=== PATIENT | female | born 1940 | race Caucasian/White ===

== ENCOUNTER 2018-05-30 16:37 | Inpatient (IN) ==
--- NOTE | 2018-05-30 17:29 | Emergency Department Note ---
Disposition Clinical Impression: Unstable angina pectoris, Elevated troponin Disposition: Admitted As Inpatient Condition: Fair Referrals: Deidre Benito CNP [Primary Care Provider] - Forms: ED Satisfaction Letter Time of Disposition: 19:37 Chest Pain HPI - General Chief Complaint: ED Chest Pain Stated Complaint: Chest/abd pain Time Seen by Provider: 05/30/18 17:29 Source: patient Mode of arrival: ambulatory Limitations: no limitations Vital Signs Reviewed: Yes Nursing Notes Reviewed: Yes - History of Present Illness HPI Narrative: Patient presents to the ED with the chief complaint of chest pain. Patient states that she had an episode 5-6 days ago. She states that it was a heavy pressure in her left chest. States that she had a heart attack 15 years ago and had 2 stents placed but this pain feels exactly the same. She has been on aspirin since then. States that she took 2 extra aspirin and went to sleep and that seemed to help her pain. States she is been fine since then and she woke up this morning and has a return of left-sided chest pressure and heaviness. States it is a very dull ache and does seem to involve her left periscapular area as well as her left arm. States it feels sore like she got a shot. She denies any fever or chills. The pain is not pleuritic. She does complain of some nausea and feeling sweaty at times. Denies any pain or swelling in her legs. No history of DVT, PE or malignancy Severity scale (1-10): 3 - Related Data Home Medications Medication Instructions Recorded Confirmed Levothyroxine [Synthroid] 50 mcg PO DAILY 08/08/15 07/02/17 Aspirin 325 mg PO DAILY 07/02/17 07/02/17 Previous Rx's Medication Instructions Recorded OxyCODONE/APAP 5/325 [Percocet 1 each PO Q6HR PRN 7 Days #28 07/02/17 5/325 MG] tablet Allergies Allergy/AdvReac Type Severity Reaction Status Date / Time penicillin V Allergy Rash Verified 07/02/17 12:58 Review of Systems: As reviewed in the HPI. All other systems reviewed are negative or normal. 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 - Social History Smoking Status: Never smoker Alcohol use: Reports: none Drug use: Reports: none Physical Exam CONSTITUTIONAL: [well appearing, alert and in no acute distress] EYES: [EOMI, clear conjunctiva, PERRLA] HENT: [Normocephalic, atraumatic, moist mucus membranes, normal oropharynx] NECK: [normal inspection, full ROM, trachea midline, no obvious swelling] PULMONARY: [normal lung sounds bilaterally, normal chest rise and fall, no respi ratory distress or stridor, no wheezes, no rales, no rhonchi CARDIOVASCULAR: [regular rate, regular rhythm, normal heart sounds, no murmurs, distal extremities are warm and well perfused] GASTROINSTESTINAL: [soft, non-tender, non-rigid, non-distended, no guarding, no rebound, normal bowel sounds] GENITOURINARY/RECTAL: [deferred] NEUROLOGIC: [Alert, oriented x3, normal speech, moves all extremities] EXTREMITIES: [Normal inspection, full ROM, no tenderness, no pedal edema, normal capillary refill] MUSCULOSKELETAL: [no gross deformities, atraumatic] SKIN: [No cyanosis, no diaphoresis, normal color, warm, no rash] PSYCHIATRIC: [normal mood and affect] - General Limitations: no limitations General appearance: alert Course - Reevaluation(s) Reevaluation #1: Troponin is elevated. We will start on a heparin drip and admit. Vital Signs Temperature 98.6 F 05/30/18 17:11 Pulse Rate 61 05/30/18 17:11 Respiratory Rate 18 05/30/18 17:11 Blood Pressure 216/96 05/30/18 17:11 O2 Sat by Pulse Oximetry 99 05/30/18 17:11 Temperature 98.6 F 05/30/18 17:11 Pulse Rate 61 05/30/18 17:11 Respiratory Rate 18 05/30/18 17:11 Blood Pressure 216/96 05/30/18 17:11 O2 Sat by Pulse Oximetry 99 05/30/18 17:45 Oxygen Delivery Oxygen Delivery Room Air Chest Pain - MDM Narrative Medical decision making narrative: 1834 hrs.: Patient's troponin 0.07, however her creatinine is not back yet. We will order aspirin for her. 1910 hrs.: Patient's labs are back she is refusing aspirin med she says she feels fine and wants to go home's were trying to talk her into staying with her elevated troponin and her history of chest pain. - Lab Data Result diagrams: 05/30/18 17:45 05/30/18 17:45 Lab Results 05/30/18 05/30/18 05/30/18 Range/Units 17:45 17:45 17:57 WBC 8.3 (4.3-11.1) K/mcL RBC 4.33 (3.82-4.97) M/mcL Hgb 13.7 (11.5-15.4) g/dL Hct 41.2 (35.3-44.9) % MCV 95.2 (83.0-100.0) fL MCH 31.6 (28.0-33.3) pg MCHC 33.3 (31.6-35.5) g/dL RDW 12.7 (11.5-14.5) % Plt Count 360 (140-400) K/mcL MPV 10.1 (9.4-12.4) fL Immature Gran % 0.4 (0-4) % Seg Neutrophils % 75.4 % Lymphocytes % 15.4 % Monocytes % 5.9 % Eosinophils % 2.3 % Basophils % 0.6 % Neutrophils # 6.3 (1.6-8.9) K/mcL Lymphocytes # 1.3 (0.6-4.6) K/mcL Monocytes # 0.5 (0.0-1.3) K/mcL Eosinophils # 0.2 (0.0-0.6) K/mcL Basophils # 0.1 (0.0-0.2) K/mcL Sodium 133 L (136-145) mEq/L Potassium 3.9 (3.5-5.1) mEq/L Chloride 98 (98-107) mEq/L Carbon Dioxide 23 (23-29) mEq/L BUN 16 (8-23) mg/dL Creatinine 0.63 (0.60-1.20) mg/dL Est GFR ( Amer) > 60 (> 60) Est GFR (Non-Af Amer) > 60 (> 60) BUN/Creatinine Ratio 25 (6-26) Glucose 119 H (70-105) mg/dL Calculated Osmolality 278 L (280-300) Calcium 10.0 (8.6-10.3) mg/dL Troponin I 0.07 H* (< 0.04) ng/mL Urine Color Yellow (Yellow) Urine Clarity Clear (Clear) Urine pH 7.0 (5.0-8.0) pH Units Ur Specific [place] 1.006 L (1.010-1.025) Urine Protein Negative (Neg-Trace) mg/dL Urine Glucose (UA) Normal (Normal) mg/dL Urine Ketones Negative (Negative) mg/dL Urine Blood Negative (Negative) Urine Nitrite Negative (Negative) Urine Bilirubin Negative (Negative) Urine Urobilinogen Normal (Normal) mg/dL Ur Leukocyte Esterase Small H (Negative) Urine Microscopic RBC 0-3 (0-3) per hpf Urine Microscopic WBC 0-3 (0-3) per hpf Ur Squamous Epith Cells None Seen (None-Few) per lpf Urine Bacteria None Seen (None-Few) per hpf Hyaline Casts None Seen (None-Few) per lpf Ur Culture Indicated? YES A (NO) Attestation Statement - Attestation Attestation: This documentation is done with the assistance of Dragon dictation. Despite efforts made to ensure accuracy, there may be inaccuracies in transportation superintendent or spelling and typographical errors. I examined this patient and my medical decision-making was reviewed with the Resident Physician. I agree with the documented findings, disposition and treatment plan as described except to the extent set forth below. Patient seen and evaluated on arrival by Dr. Dwyer and myself, I agree with his evaluation and management plan, I supervised the care the patient's stay. Patient's been having what she describes shoulder achiness she says no real chest pain a little bit into her arm. This is been going on intermittently over the last week. Said 15 years ago she had an AK in symptoms were almost like this. She is not nauseous she is not short of breath. We will do a cardiac workup on her and reassess. Chest is hypothyroidism but says she does not really have any other cardiac risk factors. She appears comfortable here.
[2018-05-30] MEDS ORDERED: 0.9 % Sodium Chloride 500 ML IVC ONE (17:36)
[2018-05-30] MEDS ORDERED: Nitroglycerin 0.4 MG TAB.SUBL SL PRN (17:36)
[2018-05-30 18:12] LABS: Bilirubin,Urine Negative (Negative); Blood,Urine Negative (Negative); Clarity,Urine Clear (Clear); Color,Urine Yellow (Yellow); Glucose,Urine (UA) Normal (Normal); Ketones,Urine Negative (Negative); Leukocyte Esterase,Urine Small (Negative); Nitrite,Urine Negative (Negative); Protein,Urine Negative (Neg-Trace); Specific Gravity,Urine 1.006 (1.010-1.025); Urobilinogen,Urine Normal (Normal)
[2018-05-30 18:15] LABS: Bacteria,Urine None Seen per hpf (None-Few); Hyaline Casts,Urine None Seen per lpf (None-Few); RBC,Urine 0-3 per hpf (0-3); Squamous Epithelial Cell,Urine None Seen per lpf (None-Few); WBC,Urine 0-3 per hpf (0-3)
[2018-05-30 18:17] LABS: Basophils # 0.1 K/mcL (0.0-0.2); Basophils % 0.6 %; Eosinophils # 0.2 K/mcL (0.0-0.6); Eosinophils % 2.3 %; Hematocrit 41.2 % (35.3-44.9); Hemoglobin 13.7 g/dL (11.5-15.4); Immature Granulocytes % 0.4 % (0-4); Lymphocytes # 1.3 K/mcL (0.6-4.6); Lymphocytes % 15.4 %; Mean Corpuscular HGB Conc 33.3 g/dL (31.6-35.5); Mean Corpuscular Hemoglobin 31.6 pg (28.0-33.3); Mean Corpuscular Volume 95.2 fL (83.0-100.0); Mean Platelet Volume 10.1 fL (9.4-12.4); Monocytes # 0.5 K/mcL (0.0-1.3); Monocytes % 5.9 %; Neutrophils # 6.3 K/mcL (1.6-8.9); Platelet Count 360 K/mcL (140-400); Red Blood Count 4.33 M/mcL (3.82-4.97); Red Cell Distribution Width 12.7 % (11.5-14.5); Segmented Neutrophils % 75.4 %
[2018-05-30 18:28] LABS: Troponin I 0.07 ng/mL (< 0.04)
[2018-05-30] MEDS ORDERED: Aspirin 81 MG TAB.CHEW PO ONE (18:30)
[2018-05-30 18:36] LABS: BUN/Creatinine Ratio 25 (6-26); Blood Urea Nitrogen 16 mg/dL (8-23); Carbon Dioxide 23 mEq/L (23-29); Chloride 98 mEq/L (98-107); Glucose 119 mg/dL (70-105); Osmolality,Calculated 278 (280-300); Potassium 3.9 mEq/L (3.5-5.1); Sodium 133 mEq/L (136-145); eGFR For Non-African Americans > 60 (> 60)
[2018-05-30] MEDS ORDERED: *HR* Heparin 5,000 UNIT/ML VIAL IVP ONE (19:12)
[2018-05-30] MEDS: Heparin 25,000 UNIT/500 ML D5W 25,000 UNIT/500 ML BAG IVC SCH (20:51)
[2018-05-30] MEDS ORDERED: Ondansetron ODT 4 MG TAB.RAPDIS SL PRN (20:53)
--- NOTE | 2018-05-30 21:03 | Internal Med History&Physical ---
<Kwadwo Wells W - Last Filed: 05/30/18 23:44> Date of Encounter: 05/30/18 Time of Encounter: 20:58 Internal Medicine - H&P: HPI Chief complaint: Chest pain Admitted From: Home History of present illness: Ms. Morgan is a 77 year old female past medical history of coronary artery disease stent placement 15 years ago, and hypothyroidism presents to the ED with chest discomfort. Patient states that Wednesday of last week she noted some chest discomfort. She describes this as an ache not necessarily pain. There was also some neck pressure This came on after she drank a large latte. She took aspirin and went to lay down and felt that it mostly went away and is able to continue her shortness. Patient felt fine for the next several days. States she woke up having this similar other left-sided chest ache/heaviness. This mostly located on her left side with some radiation to her back and shoulder. She states she did have some neck pressure at this time well. She took aspirin which helped minimally. Patient continued to most of her day and was convinced by family member to come to the ED. patient really does not have chest pain. She has no pain with exertion. Does not believe this pain is brought on by activity. Does admit to having a slightly dry mouth and urinating slightly more frequently but believes this is due to increased water intake. No dysuria, no hematuria. patient denies fever, chills, headache, vision change, weakness, swelling, numbness, tingling, loss of sensation, abdominal pain, nausea/vom iting/diarrhea, rash, SOB Past Med Surg Social Fam HX - Past Medical History Medical history: myocardial infarction, thyroid disease Additional medical history: HEART STENTS. CAD. HIGH LIPIDS Psychiatric history: no psych history - Past Surgical History Surgical History: angioplasty/stent, Additional surgical history: EAR, hearing aide, contact to left eye - Social History Smoking Status: Never smoker Smokeless Tobacco Status: No Alcohol use: none Drug use: none - Family History Father Adopted: No Family Member Ethnicity: Non- Living Status: Hx Family Cardiac Disorders: Yes (cad) Hx Family Respiratory Disorders: No Hx Family Cancer: Yes Hx Family GI Disorders: No Hx Family Endocrine Disorder: No Hx Family Neuromuscular Disorders: No Hx Family Neurologic Disorders: No Hx Family HEENT Disorders: No Hx Family Autoimmune Disorders: No Internal Medicine - H&P: Meds Levothyroxine [Synthroid] 50 mcg PO DAILY 08/08/15 [History] Aspirin 325 mg PO DAILY 07/02/17 [History] OxyCODONE/APAP 5/325 [Percocet 5/325 MG] 1 each PO Q6HR PRN 7 Days #28 tablet 07/02/17 [Rx] Allergy/AdvReac Type Severity Reaction Status Date / Time penicillin V Allergy Rash Verified 07/02/17 12:58 All Systems PM: A 10-system review of systems was performed and is negative for pertinent findings except as documented above in the HPI. - Constitutional Constitutional: as per HPI - EENT Eyes: as per HPI Ears: as per HPI Nose, mouth and throat: as per HPI - Cardiovascular Cardiovascular ROS IM: as per HPI - Respiratory Respiratory: as per HPI - Gastrointestinal Gastrointestinal: as per HPI - Genitourinary Genitourinary: as per HPI - Musculoskeletal Musculoskeletal ROS IM: as per HPI - Integumentary Integumentary IM: as per HPI - Neurological Neurological ROS: as per HPI - Psychiatric Psychiatric: as per HPI - Endocrine Additional comments: Cold hands - Constitutional Vitals: Temp Pulse Resp BP Pulse Ox 98.6 F 61 16 155/82 98 05/30/18 17:11 05/30/18 19:57 05/30/18 19:57 05/30/18 19:57 05/30/18 19:57 General appearance: Present: A&O X 3, pleasant, no acute distress, answers qu estions appropriately Exam: Patient is a very pleasant and conversational. She is in no apparent distress. - Head Head exam: Present: atraumatic, normocephalic - Eye Eye exam: Present: PERRL, conjuntiva pink, sclera anicteric Pupils: Present: PERRL - Neck Neck exam general surgery: Present: supple, trachea midline. Absent: ly mphadenopathy - Respiratory Respiratory exam: Present: CTAB. Absent: accessory muscle use, rales, rhonchi, wheezes - Cardiovascular Cardiovascular exam: Present: RRR, +S1, +S2. Absent: diastolic murmur, gallop, rubs, systolic murmur - GI/Abdominal GI/Abdominal exam: Present: normal bowel sounds, soft, no peritoneal signs. Absent: distended, tenderness - Extremities Exam Extremities exam: Present: warm, radial pulses palpable and symmetrical. Absent: calf tenderness, cyanotic, pedal edema - Neurological Exam Neurological exam: Present: oriented X3, no focal deficits. Absent: pronater drift, facial droop, speech deficit - Psychiatric Psychiatric exam: Present: normal affect, normal mood - Skin Skin exam: Present: dry, intact Internal Med - H&P Results - Labs CBC & Chem 7: 05/30/18 17:45 05/30/18 17:45 Labs: Short CBC 05/30/18 Range/Units 17:45 WBC 8.3 (4.3-11.1) K/mcL Hgb 13.7 (11.5-15.4) g/dL Hct 41.2 (35.3-44.9) % Plt Count 360 (140-400) K/mcL Neutrophils # 6.3 (1.6-8.9) K/mcL BMP 05/30/18 17:45 Sodium 133 L Potassium 3.9 Chloride 98 Carbon Dioxide 23 BUN 16 Creatinine 0.63 Glucose 119 H Calcium 10.0 Cardiac Enzymes 05/30/18 Range/Units 17:45 Troponin I 0.07 H* (< 0.04) ng/mL Urine 05/30/18 Range/Units 17:57 Urine Color Yellow (Yellow) Urine Clarity Clear (Clear) Urine pH 7.0 (5.0-8.0) pH Units Ur Specific [place] 1.006 L (1.010-1.025) Urine Protein Negative (Neg-Trace) mg/dL Urine Glucose (UA) Normal (Normal) mg/dL - Impressions ITS Impressions Chest X-Ray 05/30/18 17:37 IMPRESSION: No acute cardiopulmonary disease. D/ / 05/30/2018 18:13:26 [facility] Provider: Marlon Nguyen MD - Assessment and Plan (1) Unstable angina pectoris Current Visit: Yes Status: Acute Assessment and plan: 1 week history of intermittent chest pain History of myocardial infarction requiring stent placement 15 years ago On aspirin 324 mg daily since stent placement Troponin elevated 0.[address] segment elevation Aspirin and she will given in ED Initial blood pressure is 216/96, no history of hypertension Chest x-ray from no acute process Patient currently comfortable Plan: Heparin drip started in ED SL nitro prn ECHO NPO midnight Consult cardiology (order in), appreciate recs Cardiac monitoring Trend troponin (2) Elevated troponin Current Visit: Yes Status: Acute Assessment and plan: Plan as #1 above (3) CAD (coronary artery disease) Current Visit: No Status: Chronic Assessment and plan: History of coronary artery disease cardio 2 stents 15 years ago Plan as #1 above Qualifiers: Coronary Disease-Associated Artery/Lesion type: [place] artery [place] vs. transplanted heart: [place] heart Associated angina: without angina Qualified Code(s): I25.10 - Atherosclerotic heart disease of [place] coronary artery without angina pectoris (4) Hypertension Current Visit: Yes Status: Acute Assessment and plan: Patient had initial blood pressure 216/96 Received sublingual nitroglycerin Most recent blood pressure 155/82 No history of previous hypertension Continue to monitor Qualifiers: Hypertension type: unspecified Qualified Code(s): I10 - Essential (primary) hypertension (5) Hypothyroidism Current Visit: No Status: Chronic Assessment and plan: On levothyroxine at home Continue oral dose if no intervention is needed Qualifiers: Hypothyroidism type: unspecified Qualified Code(s): E03.9 - Hypothyroidism, unspecified (6) DVT prophylaxis Current Visit: No Status: Acute Assessment and plan: On heparin drip - Time Spent With Patient Total time spent is greater than 50% in coordination of care (as documented) at patient's floor/unit and/or counseling patient: <Heath Capps Deni - Last Filed: 05/31/18 05:59> Date of Encounter: 05/31/18 Internal Medicine - H&P: HPI History of present illness: Ms. Morgan is a 77 year old female All Systems PM: A 10-system review of systems was performed and is negative for pertinent findings except as documented above in the HPI. - Constitutional Vitals: Temp Pulse Resp BP Pulse Ox 98.3 F 53 17 109/62 97 05/31/18 05:07 05/31/18 05:07 05/31/18 05:07 05/31/18 05:07 05/31/18 05:07 Internal Med - H&P Results - Labs CBC & Chem 7: 05/30/18 17:45 05/31/18 04:43 Labs: Short CBC 02/25/19 Range/Units 17:45 WBC 8.3 (4.3-11.1) K/mcL Hgb 13.7 (11.5-15.4) g/dL Hct 41.2 (35.3-44.9) % Plt Count 360 (140-400) K/mcL Neutrophils # 6.3 (1.6-8.9) K/mcL BMP 05/30/18 05/31/18 17:45 04:43 Sodium 133 L 138 Potassium 3.9 3.6 Chloride 98 105 Carbon Dioxide 23 25 BUN 16 13 Creatinine 0.63 0.63 Glucose 119 H 105 Calcium 10.0 9.6 Cardiac Enzymes 05/30/18 05/31/18 Range/Units 17:45 00:42 Troponin I 0.07 H* 0.37 H* (< 0.04) ng/mL Urine 05/30/18 Range/Units 17:57 Urine Color Yellow (Yellow) Urine Clarity Clear (Clear) Urine pH 7.0 (5.0-8.0) pH Units Ur Specific [place] 1.006 L (1.010-1.025) Urine Protein Negative (Neg-Trace) mg/dL Urine Glucose (UA) Normal (Normal) mg/dL - Impressions ITS Impressions Chest X-Ray 05/30/18 17:37 IMPRESSION: No acute cardiopulmonary disease. D/ / 05/30/2018 18:13:26 [facility] Provider: Marlon Nguyen MD - Time Spent With Patient Total time spent is greater than 50% in coordination of care (as documented) at patient's floor/unit and/or counseling patient: - Attending Attestation I saw and evaluated the patient. I reviewed the residents note, performed my own physical examination and agree with findings and plan as documented in the residents note. Patient seen and e xamined on 05/30/18. Patient presented with she describes as a soreness in her left upper arm and shoulder, similar to her previous heart attack about 15 years ago. 2 does not necessarily describe it as pain. Initial troponin was 0.07, EKG was nonspecific and patient was started on a heparin drip in the emergency room. This morning her troponin increased to 0.37. Patient remains chest pain/symptom-free. We will continue heparin drip, echocardiogram in the morning and cardiology consult has been placed.
[2018-05-31 05:32] LABS: BUN/Creatinine Ratio 21 (6-26); Blood Urea Nitrogen 13 mg/dL (8-23); Calcium 9.6 mg/dL (8.6-10.3); Carbon Dioxide 25 mEq/L (23-29); Chloride 105 mEq/L (98-107); Glucose 105 mg/dL (70-105); Osmolality,Calculated 286 (280-300); Potassium 3.6 mEq/L (3.5-5.1); Sodium 138 mEq/L (136-145); eGFR For Non-African Americans > 60 (> 60)
[2018-05-31] MEDS ORDERED: Perflutren Lipid Microsphere 1.3 ML in 0.9 % Sodium Chloride 8.7 ML IVP ONE (09:59)
--- NOTE | 2018-05-31 11:12 | Cardiology Consult Note ---
<ThongLizzieRodri C - Last Filed: 05/31/18 11:17> Date of Encounter: 05/31/18 Time of Encounter: 11:09 Assessment and Plan (1) CAD (coronary artery disease) Current Visit: Yes Status: Chronic Patient presented with 1 day of atypical chest/left upper back pain, stated it felt similar to previous ACS pain History includes ACS remote ACS episode with cath and PCI, most recent echo/stress in 2016 Echo 2016: pEF 60%, mild diastolic dsfx, mild pulmonic regurgitation Stress 2016: negative for ischemia or infarct, gated EF 70% EKG on admission non specific, troponin 0.07 -> 0.37, 3rd pending Started on heparin drip, echo ordered, cardiology consulted Repeat EKG this am with T WAVE inversions in II, III, aVF No current chest pain this morning, echo done, report pending Recommend stress or cath today/tomorrow based on echo/troponin/clinical course Recommend continuing heparin, ASA, nitro PRN, NPO diet Further recommendations per Dr. Sun Qualifiers: Coronary Disease-Associated Artery/Lesion type: [place] artery [place] vs. transplanted heart: [place] heart Associated angina: with stable angina Qualified Code(s): I25.118 - Atherosclerotic heart disease of [place] coronary artery with other forms of angina pectoris Discussion w patient/family: The assessment and plan as outlined above was discussed with the patient and/or family members who expressed understanding and agreement. All questions were answered. Thank you for involving us in the care of your patient. Please call with any questions. History of Present Illness Consult date: 05/30/18 Requesting physician: Kwadwo Wells Consult reason: chest pain, positive troponins Chief complaint: chest pain History of present illness: Ms. Morgan is a 77 year old female with a past medical history of CAD s/p remote PCI, hypothyroidism. She presented to the ED for atypical chest pain, located more in the left upper back, that she describes as similar to the pain from her previous ACS event. It started yesterday and radiated down the left arm. In ED CXR was negative, EKG was documented as non-specific, troponins were elevated at 0.07, trended to 0.37. She was admitted and heparin drip was started, cardiology consulted. Patient cardiology history most recently includes echo and stress in 2016. Echo had preserved EF 60%, mild diastolic dysfunction, mild pulmonic regurgitation. Stress was negative for ischemia or infarct with gated EF 70%. She is no longer complaining of chest pain this morning just mild upper left back ache. She is relatively healthy otherwise with good functional status. She denies shortness of breath, palpitations, nausea or diaphoresis. Past Med Surg Social Fam HX - Past Medical History Medical history: myocardial infarction, thyroid disease Additional medical history: HEART STENTS. CAD. HIGH LIPIDS Psychiatric history: no psych history - Past Surgical History Surgical History: angioplasty/stent, Additional surgical history: EAR, hearing aide, contact to left eye - Social History Smoking Status: Never smoker Smokeless Tobacco Status: No Alcohol use: none Drug use: none - Family History Father Adopted: No Family Member Ethnicity: Non- Living Status: Hx Family Cardiac Disorders: Yes (cad) Hx Family Respiratory Disorders: No Hx Family Cancer: Yes Hx Family GI Disorders: No Hx Family Endocrine Disorder: No Hx Family Neuromuscular Disorders: No Hx Family Neurologic Disorders: No Hx Family HEENT Disorders: No Hx Family Autoimmune Disorders: No Medications and Allergies Levothyroxine [Synthroid] 50 mcg PO DAILY 08/08/15 [History] Aspirin 325 mg PO DAILY 07/02/17 [History] Allergy/AdvReac Type Severity Reaction Status Date / Time penicillin V Allergy Rash Verified 07/02/17 12:58 All Systems Review: The remainder of the systems were reviewed and are negative - Constitutional Constitutional: no chills, no fatigue, no fever(s), no frequent falls - Cardiovascular Cardiovascular: chest pain with exertion, radiating jaw, neck or arm pain, no chest pain at rest, no dyspnea at rest, no dyspnea on exertion, no irregular heart rhythm, no orthopnea - Respiratory Respiratory: no cough, no dyspnea - Gastrointestinal Gastrointestinal: no abdominal pain, no nausea - Musculoskeletal Musculoskeletal: myalgias, no abnormal gait - Integumentary Integumentary: no erythema, no rash - Neurological Neurological: no abnormal speech, no focal weakness, no syncope - Psychiatric Psychiatric: no anxiety, no depression - Hematological/Lymphatic Hematologic/Lymphatic: no easy bleeding, no easy bruising Physical Examination General: Conversant, No Apparent Distress HEENT: Atraumatic, Mucus Membranes Moist Neck: No JVD, Normal carotid pulses Cardiac: Reg Rate and Rhythm, Normal S1 and S2, No Murmur Lungs: Normal Breath Sounds, No Wheeze, Rales, Rhonchi Neuro: Alert and responsive, No focal deficits noted Abdomen: Soft, Non-Tender Skin: No rashes noted on visualized skin Musculoskeletal: No Chest Wall Tenderness Extremities: No Edema, Normal Pulses Results 05/30/18 17:45 05/31/18 04:43 Lab Results 05/30/18 05/30/18 05/31/18 17:45 17:45 00:42 WBC 8.3 Hgb 13.7 Hct 41.2 Plt Count 360 Sodium 133 L Potassium 3.9 Chloride 98 Carbon Dioxide 23 BUN 16 Creatinine 0.63 Glucose 119 H Calcium 10.0 Troponin I 0.07 H* 0.37 H* 05/31/18 04:43 WBC Hgb Hct Plt Count Sodium 138 Potassium 3.6 Chloride 105 Carbon Dioxide 25 BUN 13 Creatinine 0.63 Glucose 105 Calcium 9.6 Troponin I - Imaging and Cardiology Chest Xray: report reviewed Echo: pending - EKG Interpretation EKG results cardiology: personally reviewed, sinus rhythm (new t wave inversions in II, III, AVF) Consult Discharge Plan - Plan Referrals: Deidre Benito, TRANSFORMATION COACH [Primary Care Provider] - <Carlos Sun A - Last Filed: 05/31/18 16:25> Date of Encounter: 05/31/18 - Attending Attestation I have personally performed a face to face evaluation on this patient. I have reviewed and agree with the documented findings and care plan as documented by the resident. History and Exam by me shows: 77-year-old female with history of coronary artery disease status post stent 15 years ago, presenting with atypical chest pain which is similar to the one she had when she had NV. Mild troponin elevation which is now trending down, echo shows preserved ejection fraction. AAOX3 in NAD at the bedside Hemodynamically stable Cardiopulmonary exam revealed S1, S2, no murmur; clear lungs Rhythm reviewed - sinus rhythm, nonspecific ST T changes Echo preserved EF, no significant valvular heart disease Impression/plan: NSTEMI. Aspirin, beta priyanka, IV heparin, statin. Currently chest pain-free. Troponin trending down. For stress test tomorrow Carlos Alonso MD FAC Assessment and Plan Discussion w patient/family: The assessment and plan as outlined above was discussed with the patient and/or family members who expressed understanding and agreement. All questions were answered. Thank you for involving us in the care of your patient. Please call with any questions. History of Present Illness History of present illness: Ms. Morgan is a 77 year old female All Systems Review: The remainder of the systems were reviewed and are negative Results 05/30/18 17:45 05/31/18 04:43 Lab Results 05/30/18 05/30/18 05/31/18 17:45 17:45 00:42 WBC 8.3 Hgb 13.7 Hct 41.2 Plt Count 360 Sodium 133 L Potassium 3.9 Chloride 98 Carbon Dioxide 23 BUN 16 Creatinine 0.63 Glucose 119 H Calcium 10.0 Troponin I 0.07 H* 0.37 H* 05/31/18 05/31/18 04:43 11:40 WBC Hgb Hct Plt Count Sodium 138 Potassium 3.6 Chloride 105 Carbon Dioxide 25 BUN 13 Creatinine 0.63 Glucose 105 Calcium 9.6 Troponin I 0.18 H*
--- NOTE | 2018-05-31 13:39 | Internal Med Progress Note ---
Hospitalist Progress Note - Encounter Date of Encounter: 05/31/18 Time of Encounter: 13:37 - Subjective Interval History: Pt denies chest of sOB. She states she her left shoulder was aching and 15 years ago when she had an MO, she presented with similar symptoms. She denies fever, chills, N/V or diarrhea. - Exam Vitals: Temp Pulse Resp BP Pulse Ox 98.1 F 71 18 96/59 98 05/31/18 12:08 05/31/18 12:08 05/31/18 12:08 05/31/18 12:08 05/31/18 12:08 Exam: General appearance: Present: A&O X 3, pleasant, no acute distress, answers questions appropriately Patient is a very pleasant and conversational. She is in no apparent distress. Head exam: Present: atraumatic, normocephalic Eye exam: Present: PERRLA, conjunctiva pink, sclera anicteric Pupils: Present: PERRL Neck exam general surgery: Present: supple, trachea midline. Absent: l ymphadenopathy Respiratory exam: Present: CTAB. Absent: accessory muscle use, rales, rhonchi, wheezes Cardiovascular exam: Present: RRR, +S1, +S2. Absent: diastolic murmur, gallop, rubs, systolic murmur GI/Abdominal exam: Present: normal bowel sounds, soft, no peritoneal signs. Absent: distended, tenderness Extremities exam: Present: warm, radial pulses palpable and symmetrical. Absent: calf tenderness, cyanotic, pedal edema Neurological exam: Present: oriented X3, no focal deficits. Absent: pronater drift, facial droop, speech deficit Psychiatric exam: Present: normal affect, normal mood Skin exam: Present: dry, intact - Assessment and Plan (1) NSTEMI (non-ST elevated myocardial infarction) Current Visit: Yes Status: Acute Assessment and Plan: Troponin 0.07 --0.37 --0.18. Cardiology consulted to see. Possible stress vs cath in am. Continue on heparin gtt for now. Echo ordered. (2) Elevated troponin Current Visit: Yes Status: Acute Assessment and Plan: As above. Continue ASA daily Continue Nitro SL PRN. DC'ed nitro gtt since pt has not required it. (3) Hypertension Current Visit: Yes Status: Acute Assessment and Plan: hypotensive. Hold P meds for now. (4) Hypothyroidism Current Visit: No Status: Chronic Assessment and Plan: synthroid 50 mcg one PO daily DVT Prophylaxis: Heparin - Summary of Assessment and Plan Summary of Assessment and Plan: History of present illness: Dr. Beard Ms. Morgan is a 77 year old female past medical history of coronary artery disease stent placement 15 years ago, and hypothyroidism presents to the ED with chest discomfort. Patient states that Wednesday of last week she noted some chest discomfort. She describes this as an ache not necessarily pain. There was also some neck pressure This came on after she drank a large latte. She took aspirin and went to lay down and felt that it mostly went away and is able to continue her shortness. Patient felt fine for the next several days. States s he woke up having this similar other left-sided chest ache/heaviness. This mostly located on her left side with some radiation to her back and shoulder. She states she did have some neck pressure at this time well. She took aspirin which helped minimally. Patient continued to most of her day and was convinced by family member to come to the ED. patient really does not have chest pain. She has no pain with exertion. Does not believe this pain is brought on by activity. Does admit to having a slightly dry mouth and urinating slightly more frequently but believes this is due to increased water intake. No dysuria, no hematuria. patient denies fever, chills, headache, vision change, weakness, swelling, numbness, tingling, loss of sensation, abdominal pain, nausea/vomiting/diarrhea, rash, SOB - Time Spent with Patient Total time spent is greater than 50% in coordination of care (as documented) at patient's floor/unit and/or counseling patient: less than 15 minutes Plan of Care Discussed with: patient Internal Medicine: Result - Labs CBC & Chem 7: 05/30/18 17:45 05/31/18 04:43 Labs: Short CBC 05/30/18 Range/Units 17:45 WBC 8.3 (4.3-11.1) K/mcL Hgb 13.7 (11.5-15.4) g/dL Hct 41.2 (35.3-44.9) % Plt Count 360 (140-400) K/mcL Neutrophils # 6.3 (1.6-8.9) K/mcL BMP 05/30/18 05/31/18 17:45 04:43 Sodium 133 L 138 Potassium 3.9 3.6 Chloride 98 105 Carbon Dioxide 23 25 BUN 16 13 Creatinine 0.63 0.63 Glucose 119 H 105 Calcium 10.0 9.6 Cardiac Enzymes 05/30/18 05/31/18 05/31/18 Range/Units 17:45 00:42 11:40 Troponin I 0.07 H* 0.37 H* 0.18 H* (< 0.04) ng/mL Urine 05/30/18 Range/Units 17:57 Urine Color Yellow (Yellow) Urine Clarity Clear (Clear) Urine pH 7.0 (5.0-8.0) pH Units Ur Specific [place] 1.006 L (1.010-1.025) Urine Protein Negative (Neg-Trace) mg/dL Urine Glucose (UA) Normal (Normal) mg/dL - Impressions Impressions Chest X-Ray 05/30/18 17:37 IMPRESSION: No acute cardiopulmonary disease. D/ / 05/30/2018 18:13:26 Marlon Nguyen MD / brooks Interpreting Provider: Marlon Nguyen MD Consult Discharge Plan - Plan Referrals: Deidre Benito CNP [Primary Care Provider] - (3) Hypertension Qualifiers: Hypertension type: unspecified Qualified Code(s): I10 - Essential (primary) hypertension (4) Hypothyroidism Qualifiers: Hypothyroidism type: unspecified Qualified Code(s): E03.9 - Hypothyroidism, unspecified
--- NOTE | 2018-05-31 18:27 | Electrocardiograph Report ---
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
--- NOTE | 2018-05-31 18:38 | Electrocardiograph Report ---
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
[2018-06-01] MEDS: Aspirin 325 MG TABLET PO SCH (07:54)
[2018-06-01] MEDS ORDERED: Regadenoson 0.4 MG/5 ML SYRINGE IVP ONE (09:43)
--- NOTE | 2018-06-01 09:49 | Cardiology Progress Note ---
Date of Encounter: 06/01/18 Time of Encounter: 08:45 Assessment and Plan (1) NSTEMI (non-ST elevated myocardial infarction) Current Visit: Yes Status: Acute Patient presented with left back and shoulder pain. H/o remote SD and PCI 15 years ago. Echo 2016: pEF 60%, mild diastolic dysfuntion, mild pulmonic regurgitation. Stress 2016: negative for ischemia or infarct, gated EF 70% EKG on admission non specific t wave changes. Troponin 0.07, 0.37, 0.18. TTE reviewed, EF preserved and no WMA. Denies recurrent pain since admission. Discussed with Dr. Sun and he recommends stress test for further evaluation. Pt on heparin gtt. Continue for 48 hours. Continue asa. Pt adamantly declines taking statin . Indication, use , and adverse effects discussed. Patient seemed disinterested in information. Start low dose beta-priyanka. (2) CAD (coronary artery disease) Current Visit: Yes Status: Chronic H/o SD and PCI 15 years ago. No intervention since that time. Stress test 2016 was negative. Continue asa and bb. Declines statin therapy. Qualifiers: Coronary Disease-Associated Artery/Lesion type: [place] artery [place] vs. transplanted heart: [place] heart Associated angina: with stable angina Qualified Code(s): I25.118 - Atherosclerotic heart disease of [place] coronary artery with other forms of angina pectoris Discussion w patient/family: The assessment and plan as outlined above was discussed with the patient and/or family members who expressed understanding and agreement. All questions were answered. Thank you for involving us in the care of your patient. Please call with any questions. Subjective Principal diagnosis: NSTEMI Interval history: Ms. Morgan denies chest pain since admission. Ambulating in room. Objective Vital Signs, Last 4 Hours Temp Pulse Resp BP Pulse Ox 06/01/18 06:57 97.6 F 53 16 108/66 96 General: Conversant, No Apparent Distress HEENT: Atraumatic, Normocephaly, Mucus Membranes Moist Neck: No JVD, Normal carotid pulses Cardiac: Reg Rate and Rhythm, Normal S1 and S2, No Murmur Lungs: Normal Breath Sounds, No Wheeze, Rales, Rhonchi Neuro: Alert and responsive, No focal deficits noted Abdomen: Soft, Non-Tender Skin: No rashes noted on visualized skin Musculoskeletal: No Chest Wall Tenderness Extremities: No Clubbing, No Cyanosis, No Edema, Normal Pulses Results 05/30/18 17:45 05/31/18 04:43 Lab Results 05/31/18 11:40 Troponin I 0.18 H* - Imaging and Cardiology Echo: report reviewed - EKG Interpretation EKG results cardiology: personally reviewed Consult Discharge Plan - Plan Referrals: Deidre Benito, CONTINUOUS PICKLING LINE PICKLER [Primary Care Provider] -
--- NOTE | 2018-06-01 10:16 | Internal Med Progress Note ---
Hospitalist Progress Note - Encounter Date of Encounter: 06/01/18 Time of Encounter: 11:00 - Subjective Interval History: Patient presented with chest pain found to have non-STEMI currently on heparin drip with cardiology following Patient with abnormal stress tests afternoon - Exam Vitals: Temp Pulse Resp BP Pulse Ox 97.6 F 53 16 108/66 96 06/01/18 06:57 06/01/18 06:57 06/01/18 06:57 06/01/18 06:57 06/01/18 06:57 Exam: Gen.: Nonacute distress, alert and oriented 3 ENT: Mucosal membranes moist Respiratory: Lungs are clear to auscultation bilaterally without any wheezing rhonchi or rales Cardiovascular: Normal S1 and S2 regular rate rhythm no murmurs rubs or gallops Abdomen: Soft, nontender and nondistended with positive bowel sounds Extremities: No lower extremity edema Skin: Normal color - Assessment and Plan (1) NSTEMI (non-ST elevated myocardial infarction) Current Visit: Yes Status: Acute Assessment and Plan: Patient presented with chest pain found to have non-STEMI currently on heparin drip with cardiology following Troponin 0.07 --0.37 --0.18. Recommendations for patient to remain on heparin drip for an additional 48 hours Patient with abnormal stress tests this afternoon Cardiology following in appreciate any additional recommendations. (2) Elevated troponin Current Visit: Yes Status: Acute Assessment and Plan: As above. Continue ASA daily Continue Nitro SL PRN. Continue heparin drip as above (3) Hypothyroidism Current Visit: No Status: Chronic Assessment and Plan: Continue synthroid 50 mcg one PO daily (4) Hypertension Current Visit: Yes Status: Acute Assessment and Plan: Patient has been hypotensive therefore blood pressure medicines have been held DVT Prophylaxis: On heparin drip as above - Time Spent with Patient Total time spent is greater than 50% in coordination of care (as documented) at patient's floor/unit and/or counseling patient: Internal Medicine: Result - Labs CBC & Chem 7: 05/30/18 17:45 05/31/18 04:43 Labs: Cardiac Enzymes 05/31/18 Range/Units 11:40 Troponin I 0.18 H* (< 0.04) ng/mL - Impressions Impressions Echocardiogram 05/31/18 10:00 Impressions: LVEF 55-60%. Normal LV chamber size, wall thickness and overall function. Mild segmental left ventricular systolic dysfunction. Mild left ventricular diastolic dysfunction. Atypical septal motion of unclear etiology. Normal right ventricular structure and function. No evidence of pulmonary hypertension. No significant valvular dysfunction. Left Ventricular Wall Motion: Rest Echo Findings The basal inferior wall was hypokinetic. All other wall segments showed normal motion. Findings: Study Quality * Technically adequate exam. ECG Findings * Sinus bradycardia. Left Ventricle * LVEF 55-60%. * Normal LV chamber size, wall thickness and overall function. * Mild segmental left ventricular systolic dysfunction. * Mild left ventricular diastolic dysfunction. * Atypical septal motion of unclear etiology. Right Ventricle * Normal right ventricular structure and function. Left Atrium * Normal left atrial size. Right Atrium * Normal right atrial size. Aortic Valve * Trileaflet aortic valve. * Mildly sclerotic aortic valve leaflets. * No aortic regurgitation. * No aortic stenosis. Mitral Valve * Normal mitral valve structure and function. * No mitral regurgitation. * No mitral stenosis. Tricuspid Valve * Normal tricuspid valve structure and function. * Trace tricuspid regurgitation. * No evidence of pulmonary hypertension. Pulmonic Valve * Pulmonic valve is not well visualized. * Trace pulmonic regurgitation. Aorta * Normally sized aortic root. Pericardium * The pericardium appears normal. IVC * Normal IVC dimensions and inspiratory collapse. Pulmonary Artery * Normal visualized portions of the main pulmonary artery. Consult Discharge Plan - Plan Referrals: Deidre Benito, ALIGNMENT TECHNICIAN [Primary Care Provider] - (It is a walk in clinic...No appointment needed) (3) Hypothyroidism Qualifiers: Hypothyroidism type: unspecified Qualified Code(s): E03.9 - Hypothyroidism, unspecified (4) Hypertension Qualifiers: Hypertension type: unspecified Qualified Code(s): I10 - Essential (primary) hypertension
[2018-06-01] MEDS: Heparin 25,000 UNIT/500 ML D5W 25,000 UNIT/500 ML BAG IVC SCH ×2 (16:37→22:14)
--- NOTE | 2018-06-02 08:07 | Internal Med Progress Note ---
Hospitalist Progress Note - Encounter Date of Encounter: 06/02/18 - Subjective Interval History: Patient with history of coronary children disease, status post stent placement 15 years ago, and hypothyroid presented with chest pain found to have non-STEMI, now with abnormal stress tests.. Plans for left heart catheterization today per cardiology. - Exam Vitals: Temp Pulse Resp BP Pulse Ox 98.1 F 51 16 120/76 97 06/02/18 07:25 06/02/18 07:25 06/02/18 07:25 06/02/18 07:25 06/02/18 07:25 - Assessment and Plan (1) NSTEMI (non-ST elevated myocardial infarction) Current Visit: Yes Status: Acute Assessment and Plan: Patient with history of CAD, status post stent placement 15 years ago, who presented with chest pain found to have non-STEMI, now with abnormal stress tests. Will continue heparin drip Plans for left heart catheterization today per cardiology. (2) Hypothyroidism Current Visit: No Status: Chronic Assessment and Plan: Continue synthroid 50 mcg one PO daily (3) Hypertension Current Visit: Yes Status: Acute Assessment and Plan: Continue with metoprolol tartrate 12.5 mg twice daily DVT Prophylaxis: On heparin drip as above - Time Spent with Patient Total time spent is greater than 50% in coordination of care (as documented) at patient's floor/unit and/or counseling patient: Internal Medicine: Result - Labs CBC & Chem 7: 05/30/18 17:45 05/31/18 04:43 Consult Discharge Plan - Plan Referrals: Deidre Benito, HUMIDIFIER OPERATOR [Primary Care Provider] - (It is a walk in clinic...No appointment needed) (2) Hypothyroidism Qualifiers: Hypothyroidism type: unspecified Qualified Code(s): E03.9 - Hypothyroidism, unspecified (3) Hypertension Qualifiers: Hypertension type: unspecified Qualified Code(s): I10 - Essential (primary) hypertension
[2018-06-02] MEDS: Aspirin 325 MG TABLET PO SCH (08:26)
[2018-06-02 08:36] LABS: Basophils # 0.1 K/mcL (0.0-0.2); Basophils % 1.2 %; Eosinophils # 0.3 K/mcL (0.0-0.6); Eosinophils % 4.6 %; Hematocrit 41.7 % (35.3-44.9); Immature Granulocytes % 0.5 % (0-4); Immature Platelets 2.5 % (1.1-6.1); Lymphocytes # 1.4 K/mcL (0.6-4.6); Lymphocytes % 23.7 %; Mean Corpuscular HGB Conc 33.6 g/dL (31.6-35.5); Mean Corpuscular Volume 95.2 fL (83.0-100.0); Mean Platelet Volume 10.2 fL (9.4-12.4); Monocytes # 0.4 K/mcL (0.0-1.3); Monocytes % 7.2 %; Neutrophils # 3.7 K/mcL (1.6-8.9); Platelet Count 288 K/mcL (140-400); Red Blood Count 4.38 M/mcL (3.82-4.97); Segmented Neutrophils % 62.8 %
[2018-06-02] MEDS ORDERED: Heparin 25,000 UNIT/250 ML D5W 25,000 UNIT/250 ML IV.SOLN IVC SCH (10:30)
[2018-06-02] MEDS ORDERED: Nitroglycerin 1,000 MCG/10 ML VIAL IV ONE (11:47)
[2018-06-02] MEDS ORDERED: 0.9 % Sodium Chloride 1,000 ML ONE ×2 (11:47→12:09)
[2018-06-02] MEDS ORDERED: ISOVUE-370 200 ML INFUS..BTL ONE (11:47)
[2018-06-02] MEDS ORDERED: *HR* Heparin 10,000 UNIT/10 ML VIAL ONE (11:47)
[2018-06-02] MEDS ORDERED: Heparin 1,000 UNITS/500 mL 500 ML ONE (11:47)
--- NOTE | 2018-06-02 11:59 | Pre-Sedation Evaluation ---
Pre-sedation evaluation - Pre-sedation checklist Date of procedure: 06/02/18 Procedure: heart cath Recent Vitals: Last Vital Signs Temp 98.1 F 06/02/18 07:25 Pulse 51 06/02/18 07:25 Resp 16 06/02/18 07:25 BP 120/76 06/02/18 07:25 Pulse Ox 97 06/02/18 07:25 H&P (including ROS) documented in medical record: Yes Previous reaction to sedatives/anesthetics: No Dietary Status: NPO after Midnight Airway Assessment: Patient can open mouth completely, TMJ function normal Dentition: No loose teeth or bridges Possible difficult airway: No ASA Classification *see protocol: CLASS II-Mild systemic disease Plan of Care: Pt appropriate candidate for procedure/moderate/conscious sedation Cardiac Registry (Cardio Only) - Functional Capacity Functional Capacity: >=4 METS without symptoms - Clincal Frailty Scale Clinical Frailty Scale: Very Fit
[2018-06-02] MEDS ORDERED: Verapamil 5 MG/2 ML VIAL ONE (12:09)
[2018-06-02] MEDS ORDERED: *HR* Midazolam HCl 2 MG/2 ML VIAL ONE (12:09)
[2018-06-02 12:39] LABS: BUN/Creatinine Ratio 25 (6-26); Blood Urea Nitrogen 16 mg/dL (8-23); Carbon Dioxide 16 mEq/L (23-29); Chloride 110 mEq/L (98-107); Glucose 102 mg/dL (70-105); Osmolality,Calculated 281 (280-300); Potassium 3.9 mEq/L (3.5-5.1); Sodium 135 mEq/L (136-145); eGFR For Non-African Americans > 60 (> 60)
--- NOTE | 2018-06-02 12:45 | Event Note ---
Date of Encounter: 06/02/18 Time of Encounter: 12:43 - Cardiology Event Note cath completed. LV normal RCA chronic occlusion at proximal portion at site of previous stent. LCA diffuse mild disease + right to right and left to right collaterals. Recommendations 1) asa 2) bblockers 3) statin therapy and follow up labs.
--- NOTE | 2018-06-02 12:59 | Event Note ---
Date of Encounter: 06/02/18 Time of Encounter: 12:57 - Cardiology Event Note S/p LHC for NSTEMI. Found to have SCREED OPERATOR of the RCA with collaterals. Medical management recommended. Continue asa. Patient agrees with statin therapy now. Low dose bb started yesterday snd patient noted to have HR in the upper 40-lower 50. Willl Hold bb for bradycardia. Out-pt f/u will be coordinated. Call with questions. Cardiology will sign off.
--- NOTE | 2018-06-02 13:02 | Invasive Diagnostic Lab Proc ---
Name: Jennifer Morgan Date of Study: 06/02/2018 Date: 1940 Ht: 59.8in Medical Record#: [id number] Age: 77 Wt: 106.26lb Gender: Female BSA: 1.43 Order #: [id number] BMI: 20.86 Physicians Procedure Physician: Reymundo Morillo MD Referring MD: Referring MD: Staff Name Position Time In Keisha, Esa DORANTES Monitor 12:03 PM Akua Baumann RN Nurses Assistant 12:03 PM Long Medina RT (R) Scrub 12:03 PM Indications Indication Abnormal Test - Stress Procedures Performed Procedure L HRT ARTERY/VENTRICLE ANGIO Pre-Procedure Checklist H&P is on chart. Patient NPO for procedure Plan of Care Patient will tolerate the procedure without complications. Adequate level of comfort will be maintained. Hemodynamics will remain stable Patient will recover from procedure without complications. Respiratory function will be maintained. Cardiac rhythm will remain stable. Patient temperature will be maintained. Patient and/or family have verbalized understanding of the procedure. Patient Education Intravenous Access Time IV Size Location DC'd Fluid/Drip Rate Units RN 20g 1 04/08" Patent On Arrival Rt Antecubital 0.9NaCl Akua Baumann RN Allergies No Known Allergies penicillin V Vital Signs Time BP (mmHg) HR (bpm) O2 Sat. RR (bpm) LOC 12:13 PM / % 5 = Fully awake and oriented or at pre-proc level 12:13 PM / % 4 = Oriented but drowsy 12:13 PM 171 / 81 66 97 % 22 12:17 PM 129 / 67 60 98 % 23 12:22 PM 113 / 59 55 96 % 22 12:28 PM 115 / 70 59 99 % 21 Procedural Medications Time Medication Dose Units Method Given By 12:13 PM Oxygen 2 L/min nasal cannula Akua Baumann RN 12:13 PM Versed 2 mg Intravenous Akua Baumann RN 12:16 PM Lidocaine 2% 2 ml Subcutaneous Reymundo Morillo MD 12:17 PM Heparin 2000 units Nitroglycerin 200 mcg Verapamil 2.5 mg Intraarterial Reymundo Morlilo MD ASA Classification: CLASS II- Mild systemic disease (i.e. well-controlled diabetes, hypertension, asthma, cigarette smoking) Jon Score Preprocedure Postprocedure Activity 2- Moves 4 extremities sustained head lift Activity 2- Moves 4 extremities sustained head lift Circulation 2- SBP +/= 20 points of pre-anesthetic level Circulation 2- SBP +/= 20 points of pre-anesthetic level Consciousness 2- Awake and alert oriented x 3 Consciousness 2- Awake and alert oriented x 3 O2 Saturation 2- Able to maintain O2 satruation of 92% on room air O2 Saturation 2- Able to maintain O2 satruation of 92% on room air Respiratory 2- Able to deep breathe and cough well Respiratory 2- Able to deep breathe and cough well Total Score 10 Total Score 10 Contrast Agent: Isovue Diagnostic Contrast: 50 ml Total Contrast: 50 ml Fluoro Dose: 12 mGy Procedure Log Time Note Enter By 12:00 PM 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 Informed consent was obtained. kprater 12:04 PM Procedure start 12:04 kprater 12:11 PM Vitals capture started with the following parameters, Patient=Adult, Interval=5 min, Initial Ydtiqsts=879 mmHg, Deflation Rate=3 mmHg, Cuff placed on Right Arm 12:13 PM Hair removed from procedure site in procedure lab using clippers. Right wrist/right groin prepped with Chloraprep by Esa Valdes RN, then patient was draped. Skin intact. kprater 12:13 PM Patient charges- Angio tray pack, Navilyst 3mm J, Pulse Oximetry and ACIST tubing and transducer kprater 12:13 PM Time: 12:13 Patient comfortable and pain free: Yes kprater 12:13 PM Time: 12:13LOC: 5 = Fully awake and oriented or at pre-proc level kprater 12:13 PM bilateral hearing aids present kprater 12:13 PM Time: 12:13 Oxygen on at 2 L/min per nasal cannula by Akua Baumann RN kprater 12:13 PM Time: 12:13 Versed 2 mg Intravenous Given by Akua Baumann RN kprater 12:13 PM HR=66 bpm, WFQN=615/81 mmhg, SpO2=97.0 %, Resp=22 B/min, Comment=nsr 12:15 PM Pressure channel 2 zeroed. 12:16 PM Time out was performed according to hospital policy. Conscious sedation and anesthesia was achieved (see medication log with in this report above) kprater 12:16 PM Time: 12:16 2 ml Lidocaine 2% to right radial Subcutaneous Given by Reymundo Morillo MD kprater 12:17 PM Access obtained by percutaneous puncture. 6Fr 11cm Terumo Glidesheath sheath placed in right Radial artery. [id number] kprater 12:17 PM Time: 12:17 Patient given 2,000 units Heparin, 200 mcg Nitroglycerin, and 2.5 mg Verapamil Intraarterial by Reymundo Morillo MD. This is given to reduce risk of vessel spasm and thrombosis. kprater 12:17 PM HR=60 bpm, MCVO=844/67 mmhg, SpO2=98.0 %, Resp=23 B/min, Comment=nsr 12:18 PM 5Fr FL 3.5 catheter inserted over the wire [id number] jcallihan 12:19 PM LCA angiography performed in multiple views. [email or web address] 12:20 PM Recorded Pressure: Ao, HR=51, Condition=Condition 1 (Aorta) Ao 114/59/81 12:21 PM Catheter removed [email or web address] 12:22 PM 5Fr FR 4 catheter inserted over the wire [facility] jcallihan 12:22 PM RCA angiography performed in multiple views. [email or web address] 12:22 PM HR=55 bpm, IQXA=443/59 mmhg, SpO2=96.0 %, Resp=22 B/min, Comment=sb 12:22 PM Recorded Pressure: Ao, HR=55, Condition=Condition 1 (Aorta) Ao 127/65/92 12:23 PM Recorded Pressure: LV, HR=57, Condition=Condition 1 (Left Ventricle) LV 124/11/16 12:24 PM Catheter removed [email or web address] 12:24 PM 5Fr Pigtail catheter inserted over the wire [facility] jcallihan 12:24 PM Catheter crossed the aortic valve and was selectively placed in the left ventricle. Pressures recorded on pullback for left heart catheterization. [email or web address] 12:25 PM Recorded Pressure: LV, HR=56, Condition=Condition 1 (Left Ventricle) LV 125/14/21 12:25 PM Hand injected LV gram 10 ml [email or web address] 12:25 PM Recorded Pressure: LV, Ao, HR=52, Condition=Condition 1 (Left Ventricle) LV 117/5/12, (Aorta) Ao 120/50/75 12:26 PM Catheter removed jcallihan 12:27 PM Wire removed jcallihan 12:27 PM Procedure completed at 12:27 06/02/2018 [email or web address] 12:28 PM HR=59 bpm, EJYD=782/70 mmhg, SpO2=99.0 %, Resp=21 B/min, Comment=sb 12:28 PM Time: 12:13LOC: 4 = Oriented but drowsy jcallihan 12:29 PM Time: 12:13 Patient comfortable and pain free: Yes [email or web address] 12:33 PM ASA Class CLASS II- Mild systemic disease (i.e. well-controlled diabetes, hypertension, asthma, cigarette smoking) [email or web address] 12:33 PM Did you address LEESA flow and Dominance? Yes [email or web address] 12:33 PM Sign out completed: Radiation Dose 122.99 mGy, 11.72 Gy/cm2 Fluoro Time: 2.3 Isovue 370 - 200ml contrast 50 ml given by Reymundo Morillo MD. Complications: None. The patient was discharged out of the laborer cement gun placing in stable condition. Sedation minutes 14. Cardiac Rehab Consult needed: No. Confirmed administered medications: Yes [email or web address] 12:33 PM Isovue 370 - 200ml,1 Bottle(s) used. [email or web address] 12:33 PM Arterial sheath pulled, Vasc Band closure device used and was Successful S/N. jcallihan 12:33 PM 10 ml air in Vasc Band. [email or web address] 12:34 PM Estimated Blood Loss: minimal jcallihan 12:34 PM Post ECG NSR jcallihan 12:34 PM Post Blood Pressure 115/70 jcallihan 12:34 PM 12:34 Post Pulses Bilateral radial 2+ [email or web address] 12:34 PM Information taught Cardiac Cath and Vasc Band jcallihan 12:38 PM Education needs Procedure, Plan of Care, and Responsibilities of Patient in Care [email or web address] 12:38 PM Learning barriers :None [email or web address] 12:39 PM Education Methods Verbal [email or web address] 12:39 PM Education evaluation Able to repeat information [email or web address] 12:39 PM Site status No bleeding/hematoma - Rt Groin as reported by Long Medina RT (R) at 12:39 jcallihan 12:39 PM Report given to 2A RN Pt taken to 2A Room #41. 12:39 jcallihan 12:39 PM Plavix, Effient or Brilinta given No jcallihan 12:39 PM No family present at this time. [email or web address] 12:39 PM Complications: None jcallihan 12:39 PM Patient out of room: 12:39 jcallihan 12:43 PM Lesion found in Proximal RCA. Pre Stenosis: 100 Pre LEESA Flow: [email or web address] 12:43 PM Lesion found in Proximal LAD. Pre Stenosis: 30 Pre LEESA Flow: [email or web address] 12:43 PM Lesion found in Mid LAD. Pre Stenosis: 20 Pre LEESA Flow: [email or web address] 12:43 PM Lesion found in 1st Diagonal. Pre Stenosis: 20 Pre LEESA Flow: [email or web address] 12:45 PM Lesion found in 2nd Diagonal. Pre Stenosis: 20 Pre LEESA Flow: [email or web address] 12:45 PM Lesion found in Proximal Circumflex. Pre Stenosis: 20 Pre LEESA Flow: [email or web address] 12:45 PM Lesion found in Mid Circumflex. Pre Stenosis: 25 Pre LEESA Flow: [email or web address] 12:45 PM Lesion found in Distal Circumflex. Pre Stenosis: 30 Pre LEESA Flow: [email or web address] 12:45 PM Proximal Left Anterior Descending Coronary Artery with 30% stenosis. If graft is supplying this territory, 0 % stenosis. [email or web address] 12:45 PM Mid/Distal Left Anterior Descending Coronary Artery and diagonal branches with 20% stenosis. If graft is supplying this area, 0 % stenosis [email or web address] 12:45 PM Circumflex, Obtuse Marginal, Left Posterior Descending, and Left Posterolateral Coronary Arteries with 30 % stenosis. If graft is supplying this area, 0 % stenosis [email or web address] Complications Complication None None Hemodynamics Pressures Site Systolic/A Wave Diastolic/V Wave Mean AO 114 59 81 AO 127 65 92 LV 124 11 16 LV 125 14 21 LV 117 5 12 AO 120 50 75 Post Procedure Information Blood Pressure: 115/70 mmHg Rhythm: NSR Post procedural instructions were given Closure Device Time Device Success/Fail Mechanical Compression Successful Site Checks Time Location Status Staff Sheath In? Note 12:39 PM Rt Groin No bleeding/hematoma Long Medina RT (R) No No Pulses Time Site Pre-Procedure Post-Procedure Note 12:34:00 PM Bilateral radial 2+ 2+ Updated by Akua Baumann RN on 06/02/2018 12:51:10 PM electronically signed on 06/02/2018 12:53:14 PM with status of Final
--- NOTE | 2018-06-02 15:36 | Discharge Summary ---
- NOTES TO OUTPATIENT PROVIDER Notes to Outpatient Provider: Follow-up with primary care provider Orders not resulted at time of discharge: Pending orders 06/01/18 09:07 NM leida perf SPECT multi [NM] Routine 06/01/18 15:35 CL Cardiac Catheterization [CL] Routine 06/02/18 07:35 CL Cardiac Catheterization [CL] Routine Date of Encounter: 06/02/18 Time of Encounter: 11:00 - Discharge Diagnosis (1) NSTEMI (non-ST elevated myocardial infarction) Priority: Primary Status: Acute (2) Hypothyroidism Priority: Secondary Status: Chronic Qualifiers: Hypothyroidism type: unspecified Qualified Code(s): E03.9 - Hypothyroidism, unspecified (3) Hypertension Priority: Secondary Status: Acute Qualifiers: Hypertension type: unspecified Qualified Code(s): I10 - Essential (primary) hypertension Hospital course: Patient is a 77-year-old female with past medical history significant for coronary artery disease stent placement 15 years ago, and hypothyroidism presents to the ED with chest discomfort. During patients hospital stay she had a abnormal stress tests and a cardiac catheter was recommended by cardiology and found to have BIOMEDICAL SPECIALIST of the RCA with collaterals. Medical management recommended. She will follow up with primary care provider as an outpatient. - Time Spent with Patient Total time spent providing and/or coordinating discharge services: Time spent: Less than 30 minutes - Discharge Medications Prescriptions: New Atorvastatin [Lipitor] 40 mg PO HS 30 Days tablet Continue Levothyroxine [Synthroid] 50 mcg PO DAILY Aspirin 325 mg PO DAILY Home Medications: Levothyroxine [Synthroid] 50 mcg PO DAILY 08/08/15 [History] Aspirin 325 mg PO DAILY 07/02/17 [History] Atorvastatin [Lipitor] 40 mg PO HS 30 Days tablet 06/02/18 [Rx] Allergies/Adverse Reactions: Allergy/AdvReac Type Severity Reaction Status Date / Time penicillin V Allergy Rash Verified 07/02/17 12:58 Date of admission: 06/01/18 19:27 Primary care physician: Deidre Benito CNP Consults: 05/30/18 21:22 Consult to Pastoral Services [CONS] Routine Comment: 05/30/18 23:39 Consult to Cardiology [CONS] Routine Comment: Consulting Provider: Cardiology Ya Reason for Consult: elevated trop Call Completed: Yes - Constitutional Vitals: Temp Pulse Resp BP Pulse Ox 97.9 F 58 15 115/68 99 06/02/18 12:47 06/02/18 13:50 06/02/18 13:50 06/02/18 13:50 06/02/18 13:50 General appearance: Present: A&O X 3, pleasant, no acute distress, answers questions appropriately Exam: Gen.: Nonacute distress, alert and oriented 3 Skin: Normal color - Patient Status Disposition: Home, Self-Care Condition: Fair - Discharge Instructions Follow Up With: Deidre Benito, ART LIBRARIAN [Primary Care Provider] - (It is a walk in clinic...No appointment needed-PLEASE BE SINCE IN 5-7 DAYS AFTER DISCHARGE. THANK YOU!)
[2018-06-02 16:13] VITALS: BP 113/73
== END 2018-06-02 17:30 | disposition home or self-care (01) | DRG 282 ==
LOC: EMEROOARM 16:37 → 2ANU 16:37 → SUATTDRO 20:07 → 2ANU 20:42
PROVIDERS: ADMIT Pediatrics; ATTEND Hospitalist